=== PATIENT | female | born 1965 | race Hispanic/Latino ===

== ENCOUNTER → 2018-05-10 | Outpatient (CLI) | payer MEDICAID ==
[~2018-05-10] MED LIST: ESOM40CA PO; PARO40TA PO
== END | disposition home or self-care (01) ==
LOC: RAH 14:03
PROVIDERS: ATTEND Obstetrics & Gynecology
DX: Z12.31 Encounter for screening mammogram for malignant neoplasm of breast (principal)
CPT/HCPCS: 77067

== ENCOUNTER 2018-07-21 17:32 | Emergency (ER) | payer MEDICAID | END 2018-07-21 19:10 | disposition home or self-care (01) | LOC: EDH 17:32 | DX: S20.212A Contusion of left front wall of thorax, initial encounter (principal); S80.11XA Contusion of right lower leg, initial encounter; F41.9 Anxiety disorder, unspecified; M19.90 Unspecified osteoarthritis, unspecified site; F32.9 Major depressive disorder, single episode, unspecified; Z90.49 Acquired absence of other specified parts of digestive tract; Z98.890 Other specified postprocedural states; V49.59XA Passenger injured in collision with other motor vehicles in traffic accident, initial encounter; Y93.89 Activity, other specified; Y92.89 Other specified places as the place of occurrence of the external cause; Y99.8 Other external cause status | CPT/HCPCS: 71045 ==

== ENCOUNTER 2019-04-04 02:50 | Emergency (ER) | payer MEDICAID ==
[2019-04-04] MEDS ORDERED: HYOSCYAMINE SULFATE 0.125 MG TAB.SUBL SL ONE (04:04)
[2019-04-04] MEDS ORDERED: DiphenhydrAMINE HCL 50 MG/ML VIAL ONE (04:04)
[2019-04-04] MEDS ORDERED: ONDANSETRON HCL 4 MG/2 ML VIAL ONE (04:04)
[2019-04-04] MEDS ORDERED: FAMOTIDINE/PF 20 MG/2 ML VIAL IV ONE (04:04)
[2019-04-04 04:30] LABS: CREATININE 0.9 mg/dL (0.5-1.5)
[2019-04-04 04:34] LABS: ALBUMIN 3.5 g/dL (3.5-5.0); BILIRUBIN,DIRECT 0.1 mg/dL (0.0-0.3); BILIRUBIN,TOTAL 0.5 mg/dL (0.2-1.0); TOTAL PROTEIN, SERUM 7.7 g/dL (6.0-8.3)
[2019-04-04 04:50] LABS: BASOPHILS % (AUTO) 1.3 % (0.0-5.0); EOSINOPHILS % (AUTO) 4.7 % (0.0-8.0); HEMATOCRIT 39.9 % (36-48); LYMPHOCYTES % (AUTO) 26.5 % (21.0-51.0); MEAN CORPUSCULAR HEMOGLOBIN 29.6 pg (27.0-33.0); MEAN CORPUSCULAR VOLUME 87.2 fL (79-99); MONOCYTES % (AUTO) 5.8 % (3.0-13.0); NEUTROPHILS % (AUTO) 61.7 % (40.0-77.0); PLATELET COUNT (AUTO) 282 K/uL (130-400); RED BLOOD CELL COUNT(AUTO) 4.58 MIL/uL (4.00-5.50); RED CELL DISTRIBUTION WIDTH 13.2 % (11.0-15.5); WHITE BLOOD COUNT (AUTO) 10.7 K/uL (4.8-10.8)
== END 2019-04-04 06:57 | disposition home or self-care (01) ==
LOC: EDH 02:50
DX: F41.9 Anxiety disorder, unspecified (principal); G47.00 Insomnia, unspecified; R10.13 Epigastric pain; F32.9 Major depressive disorder, single episode, unspecified; Z90.710 Acquired absence of both cervix and uterus; Z90.49 Acquired absence of other specified parts of digestive tract
CPT/HCPCS: 36415; 80048; 80076; 82550; 83690; 84484; 85025; 93005; 96374; 96375; 99285; J1200; J2405; J3490

== ENCOUNTER → 2019-05-11 | Outpatient (CLI) | payer MEDICAID | END | disposition home or self-care (01) | LOC: RAH 14:42 | PROVIDERS: ATTEND Family Medicine | DX: Z12.31 Encounter for screening mammogram for malignant neoplasm of breast (principal) | CPT/HCPCS: 77067 ==

== ENCOUNTER 2019-07-30 09:02 | Emergency (ER) | payer MEDICAID ==
[2019-07-30] MEDS ORDERED: IBUPROFEN 200 MG TAB ONE (09:42)
== END 2019-07-30 09:56 | disposition home or self-care (01) ==
LOC: EDH 09:02
DX: S93.401A Sprain of unspecified ligament of right ankle, initial encounter (principal); F41.9 Anxiety disorder, unspecified; M19.90 Unspecified osteoarthritis, unspecified site; F32.9 Major depressive disorder, single episode, unspecified; Z98.890 Other specified postprocedural states; Z90.710 Acquired absence of both cervix and uterus; Z90.49 Acquired absence of other specified parts of digestive tract; X58.XXXA Exposure to other specified factors, initial encounter; Y93.89 Activity, other specified; Y92.098 Other place in other non-institutional residence as the place of occurrence of the external cause; Y99.8 Other external cause status
CPT/HCPCS: 73610

== ENCOUNTER 2019-12-05 14:10 | Emergency (ER) | payer MEDICAID ==
[2019-12-05 15:14] LABS: APPEARANCE,URINE Clear (CLEAR); BILIRUBIN,URINE Negative (NEGATIVE); COLOR,URINE Yellow (YELLOW); GLUCOSE, URINE (UA) Negative (NEGATIVE); KETONES,URINE Negative (NEGATIVE); LEUKOCYTE ESTERASE ,URINE Negative (NEGATIVE); NITRATE,URINE Negative (NEGATIVE); OCCULT BLOOD,URINE Negative (NEGATIVE); PROTEIN,URINE Negative (NEGATIVE)
[2019-12-05 15:22] LABS: AMPHET/METH SCREEN,URINE NEGATIVE (NEGATIVE); BARBITURATE SCREEN, URINE NEGATIVE (NEGATIVE); BENZODIAZEPINES SCREEN,URINE NEGATIVE (NEGATIVE); CANNABINOID SCREEN,URINE NEGATIVE (NEGATIVE); COCAINE SCREEN,URINE NEGATIVE (NEGATIVE); OPIATE SCREEN,URINE NEGATIVE (NEGATIVE); PHENCYCLIDINE SCREEN,URINE NEGATIVE (NEGATIVE)
[2019-12-05 15:36] LABS: BASOPHILS % (AUTO) 1.1 % (0.0-5.0); EOSINOPHILS % (AUTO) 5.3 % (0.0-8.0); HEMATOCRIT 39.9 % (36-48); MEAN CORPUSCULAR HEMOGLOBIN 29.3 pg (27.0-33.0); MEAN CORPUSCULAR HGB CONC 32.8 g/dL (32.0-36.0); MEAN CORPUSCULAR VOLUME 89.3 fL (79-99); MONOCYTES % (AUTO) 7.8 % (3.0-13.0); NEUTROPHILS % (AUTO) 49.5 % (40.0-77.0); PLATELET COUNT (AUTO) 307 K/uL (130-400); RED BLOOD CELL COUNT(AUTO) 4.47 MIL/uL (4.00-5.50); RED CELL DISTRIBUTION WIDTH 12.7 % (11.0-15.5); WHITE BLOOD COUNT (AUTO) 9.5 K/uL (4.8-10.8)
[2019-12-05 15:41] LABS: CREATININE 0.8 mg/dL (0.5-1.5); POTASSIUM 4.1 mmol/L (3.5-5.1)
[2019-12-05 15:46] LABS: ALBUMIN 3.7 g/dL (3.5-5.0); BILIRUBIN,TOTAL 0.4 mg/dL (0.2-1.0)
[2019-12-05 16:01] LABS: INR 0.91 (0.85-1.15); PROTHROMBIN TIME 9.9 SEC (9.6-11.6)
[2019-12-05] MEDS ORDERED: HYOSCYAMINE SULFATE 0.125 MG TAB.SUBL SL ONE (16:40)
== END 2019-12-05 17:02 | disposition home or self-care (01) ==
LOC: EDH 14:10
DX: K76.0 Fatty (change of) liver, not elsewhere classified (principal); R10.11 Right upper quadrant pain; I10 Essential (primary) hypertension; F41.9 Anxiety disorder, unspecified; M19.90 Unspecified osteoarthritis, unspecified site; F32.9 Major depressive disorder, single episode, unspecified; Z90.49 Acquired absence of other specified parts of digestive tract; Z98.890 Other specified postprocedural states; Z90.710 Acquired absence of both cervix and uterus
CPT/HCPCS: 36415; 71045; 74176; 80053; 80305; 81003; 82150; 82550; 83690; 84484; 85025; 85610; 85730; 93005

== ENCOUNTER 2020-03-24 04:03 | Emergency (ER) | payer MEDICAID ==
[2020-03-24] MEDS ORDERED: SODIUM CHLORIDE 0.9% 1000ML 1,000 ML IV ONE (04:04)
[2020-03-24] MEDS ORDERED: KETOROLAC TROMETHAMINE 30MG/ML ONE (04:14)
[2020-03-24] MEDS ORDERED: ONDANSETRON HCL 4 MG/2 ML VIAL ONE (04:14)
[2020-03-24 05:18] LABS: BASOPHILS % (AUTO) 1.3 % (0.0-5.0); EOSINOPHILS % (AUTO) 5.2 % (0.0-8.0); HEMATOCRIT 40.5 % (36-48); LYMPHOCYTES % (AUTO) 30.8 % (21.0-51.0); MEAN CORPUSCULAR HEMOGLOBIN 29.6 pg (27.0-33.0); MEAN CORPUSCULAR HGB CONC 33.6 g/dL (32.0-36.0); MEAN CORPUSCULAR VOLUME 88.2 fL (79-99); MONOCYTES % (AUTO) 6.7 % (3.0-13.0); NEUTROPHILS % (AUTO) 55.6 % (40.0-77.0); PLATELET COUNT (AUTO) 322 K/uL (130-400); RED BLOOD CELL COUNT(AUTO) 4.59 MIL/uL (4.00-5.50); RED CELL DISTRIBUTION WIDTH 13.1 % (11.0-15.5); WHITE BLOOD COUNT (AUTO) 9.5 K/uL (4.8-10.8)
[2020-03-24 05:20] LABS: APPEARANCE,URINE Cloudy (CLEAR); BILIRUBIN,URINE Negative (NEGATIVE); COLOR,URINE Orange (YELLOW); GLUCOSE, URINE (UA) Negative (NEGATIVE); KETONES,URINE Negative (NEGATIVE); LEUKOCYTE ESTERASE ,URINE Small (NEGATIVE); NITRATE,URINE Negative (NEGATIVE); OCCULT BLOOD,URINE Large (NEGATIVE); PROTEIN,URINE POS 1+ mg/dL (NEGATIVE)
[2020-03-24 05:39] LABS: ALBUMIN 3.6 g/dL (3.5-5.0); BILIRUBIN,DIRECT 0.2 mg/dL (0.0-0.3); BILIRUBIN,TOTAL 0.8 mg/dL (0.2-1.0); CREATININE 0.9 mg/dL (0.5-1.5); POTASSIUM 3.7 mmol/L (3.5-5.1); TOTAL PROTEIN, SERUM 7.9 g/dL (6.0-8.3)
[2020-03-24 05:49] LABS: BACTERIA,URINE Rare /HPF (None Seen); RBC,URINE 51-100 /HPF (0-1); SQUAMOUS EPITHELIAL CELL,UR Rare /HPF (0-2)
== END 2020-03-24 06:05 | disposition home or self-care (01) ==
LOC: EDH 04:03
DX: N13.2 Hydronephrosis with renal and ureteral calculous obstruction (principal); E11.9 Type 2 diabetes mellitus without complications; F41.9 Anxiety disorder, unspecified; F32.9 Major depressive disorder, single episode, unspecified; M19.90 Unspecified osteoarthritis, unspecified site; Z90.49 Acquired absence of other specified parts of digestive tract; Z90.710 Acquired absence of both cervix and uterus; Z98.890 Other specified postprocedural states
CPT/HCPCS: 36415; 74176; 80048; 80076; 81001; 82550; 83690; 85025; 93005; 96361; 96374; 96375; 99285; J1885; J2405; J7030

== ENCOUNTER 2021-04-27 01:41 | Emergency (ER) | payer MEDICAID ==
[~2021-04-27] VITALS: Ht 160 cm; Wt 102.1 kg
[2021-04-27 02:02] LABS: APPEARANCE,URINE Clear (CLEAR); BILIRUBIN,URINE Negative (NEGATIVE); GLUCOSE, URINE (UA) Negative (NEGATIVE); KETONES,URINE Negative (NEGATIVE); LEUKOCYTE ESTERASE ,URINE Trace (NEGATIVE); NITRATE,URINE Negative (NEGATIVE); OCCULT BLOOD,URINE Large (NEGATIVE); PROTEIN,URINE Trace mg/dL (NEGATIVE)
[2021-04-27 02:03] LABS: COLOR,URINE YELLOW (YELLOW)
[2021-04-27 02:12] LABS: BACTERIA,URINE Rare /HPF (None Seen); CALCIUM OXALATE CRYSTALS,UR Rare /LPF (None Seen); RBC,URINE 26-50 /HPF (0-1); SQUAMOUS EPITHELIAL CELL,UR 0-2 /HPF (0-2); WBC,URINE 0-1 /HPF (0-1)
[2021-04-27] MEDS ORDERED: KETOROLAC 15MG/ML VIAL (15MG/ML) IV ONE (02:30)
[2021-04-27] MEDS ORDERED: PROCHLORPERAZINE EDISYLATE 5 MG/ML 2 ML VIAL IVP ONE (02:30)
[2021-04-27] MEDS ORDERED: 0.9%NACL 1000ML 1,000 ML IV ONE ×2 (02:30→02:55)
[2021-04-27 02:58] LABS: BASOPHILS % (AUTO) 1.2 % (0.0-5.0); EOSINOPHILS % (AUTO) 5.2 % (0.0-8.0); HEMATOCRIT 41.7 % (36-48); LYMPHOCYTES % (AUTO) 25.5 % (21.0-51.0); MEAN CORPUSCULAR HEMOGLOBIN 29.4 pg (27.0-33.0); MEAN CORPUSCULAR HGB CONC 32.6 g/dL (32.0-36.0); MEAN CORPUSCULAR VOLUME 90.1 fL (79-99); MONOCYTES % (AUTO) 7.7 % (3.0-13.0); NEUTROPHILS % (AUTO) 60.2 % (40.0-77.0); PLATELET COUNT (AUTO) 286 K/uL (130-400); RED BLOOD CELL COUNT(AUTO) 4.63 MIL/uL (4.00-5.50); WHITE BLOOD COUNT (AUTO) 11.3 K/uL (4.8-10.8)
[2021-04-27] MEDS ORDERED: ONDANSETRON 4MG INJ ONE (02:59)
[2021-04-27 03:08] LABS: CREATININE 0.9 mg/dL (0.5-1.5)
[2021-04-27 03:13] LABS: ALBUMIN 3.7 g/dL (3.5-5.0); BILIRUBIN,TOTAL 0.6 mg/dL (0.2-1.0); TOTAL PROTEIN, SERUM 8.1 g/dL (6.0-8.3)
[2021-04-27] MEDS ORDERED: ONDANSETRON 4MG INJ IVP ONE (03:30)
[2021-04-27] MEDS ORDERED: CEFTRIAXONE 1G VIAL IVP ONE (06:30)
[2021-04-27 07:16] VITALS: BP 126/73
[2021-04-27] MEDS ORDERED: KETO10 PO (08:17)
[2021-04-27] MEDS ORDERED: CEPH250 PO (08:18)
[2021-04-27] MEDS ORDERED: TAMS-1 PO (08:18)
== END 2021-04-27 08:36 | disposition home or self-care (01) ==
LOC: EDH 01:41
DX: N20.0 Calculus of kidney (principal); K57.30 Diverticulosis of large intestine without perforation or abscess without bleeding; K76.0 Fatty (change of) liver, not elsewhere classified; K42.9 Umbilical hernia without obstruction or gangrene; F41.9 Anxiety disorder, unspecified; F32.9 Major depressive disorder, single episode, unspecified; E11.9 Type 2 diabetes mellitus without complications; M19.90 Unspecified osteoarthritis, unspecified site; Z79.899 Other long term (current) drug therapy; Z98.890 Other specified postprocedural states
CPT/HCPCS: 36415; 74176; 80053; 81001; 85025; 96361; 96374; 96375; 99284; J0696; J1885; J2405; J7030

== ENCOUNTER 2021-05-17 22:33 | Observation (INO) | payer MEDICAID ==
[~2021-05-17] VITALS: Ht 160 cm; Wt 117.9 kg
[~2021-05-17 22:33] MED LIST changes: +CEPH250 PO; +KETO10 PO; +TAMS-1 PO
[2021-05-17 23:03] LABS: APPEARANCE,URINE Clear (CLEAR); BILIRUBIN,URINE Negative (NEGATIVE); COLOR,URINE Yellow (YELLOW); GLUCOSE, URINE (UA) Negative (NEGATIVE); KETONES,URINE Negative (NEGATIVE); LEUKOCYTE ESTERASE ,URINE Small (NEGATIVE); NITRATE,URINE Negative (NEGATIVE); OCCULT BLOOD,URINE Large (NEGATIVE); PROTEIN,URINE Negative (NEGATIVE); UROBILINOGEN,URINE 0.2 mg/dL (0.2-1.0)
[2021-05-17 23:11] LABS: BACTERIA,URINE None Seen /HPF (None Seen); SQUAMOUS EPITHELIAL CELL,UR Rare /HPF (0-2)
[2021-05-17 23:45] LABS: BASOPHILS % (AUTO) 0.9 % (0.0-5.0); EOSINOPHILS % (AUTO) 2.1 % (0.0-8.0); HEMATOCRIT 38.7 % (36-48); LYMPHOCYTES % (AUTO) 12.4 % (21.0-51.0); MEAN CORPUSCULAR HEMOGLOBIN 29.2 pg (27.0-33.0); MEAN CORPUSCULAR HGB CONC 33.3 g/dL (32.0-36.0); MEAN CORPUSCULAR VOLUME 87.6 fL (79-99); MONOCYTES % (AUTO) 6.1 % (3.0-13.0); NEUTROPHILS % (AUTO) 78.1 % (40.0-77.0); PLATELET COUNT (AUTO) 296 K/uL (130-400); RED BLOOD CELL COUNT(AUTO) 4.42 MIL/uL (4.00-5.50); RED CELL DISTRIBUTION WIDTH 12.5 % (11.0-15.5); WHITE BLOOD COUNT (AUTO) 17.6 K/uL (4.8-10.8)
[2021-05-17 23:54] LABS: CREATININE 1.1 mg/dL (0.5-1.5); POTASSIUM 3.8 mmol/L (3.5-5.1)
[2021-05-17 23:59] LABS: ALBUMIN 3.7 g/dL (3.5-5.0); BILIRUBIN,TOTAL 0.6 mg/dL (0.2-1.0); TOTAL PROTEIN, SERUM 7.8 g/dL (6.0-8.3)
[2021-05-18] VITALS (23 sets, daily range): BP systolic 114–157; BP diastolic 54–78
[2021-05-18] MEDS ORDERED: TAMSULOSIN HCL 0.4 MG CAP.ER.24H PO STA (00:22)
[2021-05-18] MEDS ORDERED: 0.9%NACL 1000ML 1,000 ML IV ONE (00:30)
[2021-05-18] MEDS ORDERED: ONDANSETRON 4MG INJ IVP ONE (00:30)
[2021-05-18] MEDS ORDERED: MORPHINE 5 MG/ML VIAL (5MG OR GREATER DOSE) IM ONE (00:30)
[2021-05-18] MEDS ORDERED: CEFTRIAXONE 1G VIAL IVP ONE (02:00)
[2021-05-18] MEDS ORDERED: DEXTROSE 50%-WATER 50 ML DISP.SYRIN IV PRN (03:00)
[2021-05-18] MEDS ORDERED: NITROGLYCERIN 0.4 MG SL TAB SL PRN (03:00)
[2021-05-18] MEDS ORDERED: ONDANSETRON 4MG INJ IV PRN (03:00)
[2021-05-18] MEDS ORDERED: GLUCAGON 1MG KIT 1 MG ML IM PRN (03:00)
[2021-05-18] MEDS ORDERED: ACETAMINOPHEN 325 MG TAB PO PRN ×2 (03:00)
[2021-05-18 03:20] LABS: HEMOGLOBIN A1C 6.9 % (4.0-6.0)
[2021-05-18] MEDS ORDERED: MORPHINE 2 MG SYG IVP PRN (03:30)
[2021-05-18] MEDS: 1/2 NS 1000ML 1,000 ML IV SCH ×3 (03:48→23:07)
[2021-05-18] MEDS: ZOSYN 3.375GM +NS 50ML IV SCH ×3 (03:48→20:36)
[2021-05-18] MEDS ORDERED: CEFTRIAXONE 1G VIAL ONE (03:49)
[2021-05-18] MEDS ORDERED: LACTULOSE 20 GM/30 ML UDCUP PO PRN (04:00)
[2021-05-18 04:16] LABS: INR 0.99 (0.85-1.15); MAGNESIUM 2.1 mg/dL (1.80-2.40); PROTHROMBIN TIME 10.8 SEC (9.6-11.6)
[2021-05-18] MEDS ORDERED: PARO40TA72 PO (06:08)
[2021-05-18] MEDS ORDERED: METF500S7 PO (06:09)
[2021-05-18] MEDS ORDERED: METF-444 PO (06:09)
[2021-05-18] MEDS: INSULIN HUMULIN R 100 UNIT/ML 3ML SQ SCH ×4 (06:10→20:41)
[2021-05-18] MEDS ORDERED: TRAM50TA4 PO (06:10)
[2021-05-18] MEDS: FAMOTIDINE 20MG TAB PO SCH ×2 (09:32→20:36)
[2021-05-18] MEDS ORDERED: IOHEXOL-350 50ML VIAL IV ONE (17:48)
[2021-05-18] MEDS ORDERED: ONDANSETRON 4MG INJ ONE (18:00)
[2021-05-18] MEDS ORDERED: METOCLOPRAMIDE 10 MG/2 ML VIAL ONE (18:00)
[2021-05-18] MEDS ORDERED: SUCCINYLCHOLINE 200MG/10ML SYR ONE (18:00)
[2021-05-18] MEDS ORDERED: LIDOCAINE PF 100MG/5ML (2%) SYRINGE 5ML ONE (18:00)
[2021-05-18] MEDS ORDERED: PROPOFOL 10 MG/ML 20ML VIAL IV ONE (18:01)
[2021-05-18] MEDS ORDERED: ROCURONIUM 10MG/1ML SYR 10 MG/ML ML ONE (18:01)
[2021-05-18] MEDS ORDERED: FENTANYL CITRATE PF 50 MCG/1 ML 2ML VIAL ONE (18:01)
[2021-05-18] MEDS ORDERED: MIDAZOLAM HCL 1 MG/ML 2ML VIAL ONE (18:03)
[2021-05-18] MEDS ORDERED: NEOSTIGMINE 5MG/5ML SYR IV ONE (19:05)
[2021-05-18] MEDS ORDERED: GLYCOPYRROLATE 1 MG/5 ML SYRINGE ONE (19:05)
[2021-05-18] MEDS ORDERED: TRAMADOL HCL 50 MG TABLET PO PRN (19:30)
[2021-05-18] MEDS ORDERED: TAMSULOSIN HCL 0.4 MG CAP.ER.24H PO SCH (21:00)
[2021-05-19] VITALS: BP_SYST 132; BP_SYST 141; BP_DIAS 68; BP_DIAS 79
[2021-05-19 01:00] VITALS: BP 146/72
[2021-05-19 03:58] LABS: BASOPHILS % (AUTO) 0.9 % (0.0-5.0); EOSINOPHILS % (AUTO) 3.5 % (0.0-8.0); HEMATOCRIT 35.7 % (36-48); LYMPHOCYTES % (AUTO) 25.7 % (21.0-51.0); MEAN CORPUSCULAR HEMOGLOBIN 29.2 pg (27.0-33.0); MEAN CORPUSCULAR HGB CONC 32.2 g/dL (32.0-36.0); MEAN CORPUSCULAR VOLUME 90.6 fL (79-99); MONOCYTES % (AUTO) 7.5 % (3.0-13.0); NEUTROPHILS % (AUTO) 62.2 % (40.0-77.0); PLATELET COUNT (AUTO) 244 K/uL (130-400); RED BLOOD CELL COUNT(AUTO) 3.94 MIL/uL (4.00-5.50); RED CELL DISTRIBUTION WIDTH 12.8 % (11.0-15.5); WHITE BLOOD COUNT (AUTO) 9.8 K/uL (4.8-10.8)
[2021-05-19 04:00] VITALS: BP 138/70
[2021-05-19] MEDS: ZOSYN 3.375GM +NS 50ML IV SCH ×2 (04:08→11:40)
[2021-05-19 04:46] LABS: CREATININE 0.9 mg/dL (0.5-1.5); MAGNESIUM 2.1 mg/dL (1.80-2.40); POTASSIUM 4.1 mmol/L (3.5-5.1); TOTAL PROTEIN, SERUM 6.7 g/dL (6.0-8.3)
[2021-05-19] MEDS: INSULIN HUMULIN R 100 UNIT/ML 3ML SQ SCH ×2 (06:33→11:30)
[2021-05-19 08:00] VITALS: BP 151/74
[2021-05-19] MEDS: 1/2 NS 1000ML 1,000 ML IV SCH (09:03)
[2021-05-19] MEDS: FAMOTIDINE 20MG TAB PO SCH (09:03)
[2021-05-19 11:27] VITALS: BP 134/69
[2021-05-19] MEDS ORDERED: LEVO750T46 PO (14:28)
[2021-05-19] MEDS ORDERED: TAMS-1 PO (14:28)
[2021-05-19 15:30] VITALS: BP 152/70
== END 2021-05-19 16:30 | disposition home or self-care (01) ==
LOC: EDH 22:33 → EDHIP 22:34 → INTOOBSV 22:34 → 3DH 05-18 05:08
PROVIDERS: ADMIT Hospitalist; ATTEND Hospitalist
DX: N10 Acute pyelonephritis (principal); Z20.822 Contact with and (suspected) exposure to COVID-19; N20.1 Calculus of ureter; N13.30 Unspecified hydronephrosis; E66.01 Morbid (severe) obesity due to excess calories; E11.9 Type 2 diabetes mellitus without complications; E78.5 Hyperlipidemia, unspecified; K57.90 Diverticulosis of intestine, part unspecified, without perforation or abscess without bleeding; M47.815 Spondylosis without myelopathy or radiculopathy, thoracolumbar region; Z79.84 Long term (current) use of oral hypoglycemic drugs; Z90.710 Acquired absence of both cervix and uterus; Z90.49 Acquired absence of other specified parts of digestive tract; Z79.899 Other long term (current) drug therapy; Z98.890 Other specified postprocedural states; Z87.442 Personal history of urinary calculi; Z68.42 Body mass index [BMI] 45.0-49.9, adult
CPT/HCPCS: 36415 ×3; 52332; 74176; 74420; 80053 ×2; 81001; 82948 ×7; 83036; 83605 ×2; 83735 ×2; 84145 ×2; 85025 ×2; 85610; 85730; 87040 ×2; 87088; 87635; 93005; 96365; 96366 ×4; 96372; 96375; 99285; A4358; A4930; C1758; C1769; C2617; G0378; J0330; J0696; J2250; J2270; J2405 ×2; J2543 ×5; J2710; J2765; J3010; J3490 ×4; J7030 ×2; J7120; J2001; J2704; Q9967

== ENCOUNTER 2021-06-10 17:06 | Inpatient (IN) | payer MEDICAID ==
[~2021-06-10] VITALS: Ht 160 cm; Wt 116.6 kg
[~2021-06-10 17:06] MED LIST changes: -CEPH250 PO; -ESOM40CA PO; -KETO10 PO; +LEVO750T46 PO; +METF-444 PO; -PARO40TA PO; +PARO40TA72 PO; +TRAM50TA4 PO
[2021-06-10 17:57] LABS: BASOPHILS % (AUTO) 1.4 % (0.0-5.0); EOSINOPHILS % (AUTO) 5.9 % (0.0-8.0); LYMPHOCYTES % (AUTO) 28.2 % (21.0-51.0); MEAN CORPUSCULAR HEMOGLOBIN 29.1 pg (27.0-33.0); MEAN CORPUSCULAR HGB CONC 32.2 g/dL (32.0-36.0); MEAN CORPUSCULAR VOLUME 90.5 fL (79-99); MONOCYTES % (AUTO) 6.8 % (3.0-13.0); NEUTROPHILS % (AUTO) 57.5 % (40.0-77.0); PLATELET COUNT (AUTO) 395 K/uL (130-400); RED BLOOD CELL COUNT(AUTO) 4.09 MIL/uL (4.00-5.50); RED CELL DISTRIBUTION WIDTH 12.6 % (11.0-15.5); WHITE BLOOD COUNT (AUTO) 11.3 K/uL (4.8-10.8)
[2021-06-10 18:17] LABS: CREATININE 1.2 mg/dL (0.5-1.5); POTASSIUM 4.1 mmol/L (3.5-5.1)
[2021-06-10 18:23] LABS: ALBUMIN 3.8 g/dL (3.5-5.0); BILIRUBIN,TOTAL 0.5 mg/dL (0.2-1.0)
[2021-06-10 18:26] LABS: APPEARANCE,URINE CLOUDY (CLEAR); BILIRUBIN,URINE SMALL (NEGATIVE); COLOR,URINE RED (YELLOW); GLUCOSE, URINE (UA) NEGATIVE (NEGATIVE); KETONES,URINE 5 mg/dL (NEGATIVE); LEUKOCYTE ESTERASE ,URINE MODERATE (NEGATIVE); NITRATE,URINE POSITIVE (NEGATIVE); OCCULT BLOOD,URINE LARGE (NEGATIVE); PH,URINE 6.5 (5.0-8.0); PROTEIN,URINE >=300 mg/dL (NEGATIVE)
[2021-06-10] MEDS ORDERED: ONDANSETRON 4MG INJ ONE (18:28)
[2021-06-10] MEDS ORDERED: PHENAZOPYRIDINE HCL 200 MG TABLET ONE (18:28)
[2021-06-10] MEDS ORDERED: MORPHINE 4 MG SYG ONE (18:29)
[2021-06-10] MEDS ORDERED: 0.9%NACL 1000ML 1,000 ML IV SCH (18:30)
[2021-06-10] MEDS ORDERED: ONDANSETRON 4MG INJ IVP SCH (18:30)
[2021-06-10] MEDS ORDERED: ZOSYN 3.375GM +NS 50ML IV SCH (18:30)
[2021-06-10] MEDS ORDERED: PHENAZOPYRIDINE HCL 200 MG TABLET PO SCH (18:30)
[2021-06-10] MEDS ORDERED: MORPHINE 4 MG SYG IVP SCH (18:30)
[2021-06-10] MEDS ORDERED: 0.9%NACL 1000ML 1,000 ML IV ONE (18:31)
[2021-06-10] MEDS ORDERED: 0.9%NACL 50ML 50 ML IV ONE (18:56)
[2021-06-10 19:30] LABS: BACTERIA,URINE Rare /HPF (None Seen); RBC,URINE TNTC /HPF (0-1); SQUAMOUS EPITHELIAL CELL,UR None Seen /HPF (0-2)
[2021-06-10] MEDS ORDERED: HYDROCODONE/ACETAMINOPHEN 5/325 MG TAB PO PRN (22:00)
[2021-06-10] MEDS ORDERED: ONDANSETRON 4MG INJ IV PRN (22:00)
[2021-06-10] MEDS ORDERED: HYDROMORPHONE 1 MG INJ IV PRN (22:00)
[2021-06-10] MEDS ORDERED: MAG/ALUM/SIMETH 30 ML UDCUP PO PRN (22:00)
[2021-06-10] MEDS ORDERED: LACTULOSE 20 GM/30 ML UDCUP PO PRN (22:00)
[2021-06-10] MEDS ORDERED: ACETAMINOPHEN 325 MG TAB PO PRN ×2 (22:00)
[2021-06-10] MEDS: 0.9%NACL 1000ML 1,000 ML IV SCH (22:30)
[2021-06-10] MEDS: ZOSYN 3.375GM +NS 50ML IV SCH (22:30)
[2021-06-11] VITALS (15 sets, daily range): BP systolic 121–168; BP diastolic 60–82
[2021-06-11] MEDS ORDERED: TRAM50TA4 PO (00:41)
[2021-06-11] MEDS ORDERED: METF-526 PO (00:41)
[2021-06-11] MEDS ORDERED: IBUP-2077 PO (00:41)
[2021-06-11] MEDS ORDERED: PARO40TA72 PO (00:41)
[2021-06-11] MEDS: ZOSYN 3.375GM +NS 50ML IV SCH ×4 (05:27→22:00)
[2021-06-11 06:27] LABS: HEMATOCRIT 33.7 % (36-48); MEAN CORPUSCULAR HEMOGLOBIN 28.5 pg (27.0-33.0); MEAN CORPUSCULAR HGB CONC 31.8 g/dL (32.0-36.0); MEAN CORPUSCULAR VOLUME 89.9 fL (79-99); RED BLOOD CELL COUNT(AUTO) 3.75 MIL/uL (4.00-5.50); RED CELL DISTRIBUTION WIDTH 12.5 % (11.0-15.5); WHITE BLOOD COUNT (AUTO) 8.3 K/uL (4.8-10.8)
[2021-06-11 06:56] LABS: POTASSIUM 4.7 mmol/L (3.5-5.1)
[2021-06-11] MEDS: INSULIN HUMULIN R 100 UNIT/ML 3ML SQ SCH ×4 (07:30→21:00)
[2021-06-11] MEDS ORDERED: INSULIN HUMULIN R 100 UNIT/ML 3ML SQ SCH (07:30)
[2021-06-11] MEDS: 0.9%NACL 1000ML 1,000 ML IV SCH ×2 (08:21→18:00)
[2021-06-11] MEDS: TAMSULOSIN HCL 0.4 MG CAP.ER.24H PO SCH (09:00)
[2021-06-11] MEDS: FAMOTIDINE 20MG VIAL IV SCH ×2 (09:00→21:00)
[2021-06-11] MEDS ORDERED: LIDOCAINE PF 100MG/5ML (2%) SYRINGE 5ML ONE (19:05)
[2021-06-11] MEDS ORDERED: SUCCINYLCHOLINE 200MG/10ML SYR ONE (19:05)
[2021-06-11] MEDS ORDERED: FENTANYL CITRATE PF 50 MCG/1 ML 2ML VIAL ONE (19:05)
[2021-06-11] MEDS ORDERED: PROPOFOL 10 MG/ML 20ML VIAL IV ONE (19:05)
[2021-06-11] MEDS ORDERED: MIDAZOLAM HCL 1 MG/ML 2ML VIAL ONE (19:38)
[2021-06-11] MEDS ORDERED: FENTANYL CITRATE PF 50 MCG/1 ML 5ML AMP IV ONE (20:17)
[2021-06-11] MEDS ORDERED: ONDANSETRON 4MG INJ ONE (20:22)
[2021-06-11] MEDS ORDERED: KETOROLAC 15MG/ML VIAL (15MG/ML) IV PRN (22:30)
[2021-06-12 01:40] VITALS: BP 101/61
[2021-06-12] MEDS: 0.9%NACL 1000ML 1,000 ML IV SCH ×3 (03:18→23:26)
[2021-06-12 04:00] VITALS: BP_SYST 118; BP_SYST 97; BP_DIAS 61; BP_DIAS 64
[2021-06-12 04:48] LABS: BASOPHILS % (AUTO) 1.5 % (0.0-5.0); EOSINOPHILS % (AUTO) 5.1 % (0.0-8.0); HEMATOCRIT 32.8 % (36-48); LYMPHOCYTES % (AUTO) 32.8 % (21.0-51.0); MEAN CORPUSCULAR VOLUME 90.6 fL (79-99); MONOCYTES % (AUTO) 6.9 % (3.0-13.0); NEUTROPHILS % (AUTO) 53.4 % (40.0-77.0); PLATELET COUNT (AUTO) 331 K/uL (130-400); RED BLOOD CELL COUNT(AUTO) 3.62 MIL/uL (4.00-5.50); RED CELL DISTRIBUTION WIDTH 12.6 % (11.0-15.5); WHITE BLOOD COUNT (AUTO) 8.7 K/uL (4.8-10.8)
[2021-06-12 05:09] LABS: ALBUMIN 2.9 g/dL (3.5-5.0); BILIRUBIN,TOTAL 0.9 mg/dL (0.2-1.0); CREATININE 0.8 mg/dL (0.5-1.5); POTASSIUM 3.6 mmol/L (3.5-5.1); TOTAL PROTEIN, SERUM 6.3 g/dL (6.0-8.3)
[2021-06-12] MEDS: ZOSYN 3.375GM +NS 50ML IV SCH ×3 (06:13→20:16)
[2021-06-12] MEDS: INSULIN HUMULIN R 100 UNIT/ML 3ML SQ SCH ×4 (07:00→20:17)
[2021-06-12 08:00] VITALS: BP 134/68
[2021-06-12] MEDS: FAMOTIDINE 20MG VIAL IV SCH ×2 (09:51→20:16)
[2021-06-12] MEDS: TAMSULOSIN HCL 0.4 MG CAP.ER.24H PO SCH (09:51)
[2021-06-12] MEDS: PAROXETINE HCL 20 MG TABLET PO SCH (09:52)
[2021-06-12 11:47] VITALS: BP 171/93
[2021-06-12 16:00] VITALS: BP 138/76
[2021-06-12 20:00] VITALS: BP 131/68
[2021-06-13] VITALS: BP 127/58
[2021-06-13 04:00] VITALS: BP 147/69
[2021-06-13] MEDS: ZOSYN 3.375GM +NS 50ML IV SCH (05:33)
[2021-06-13] MEDS: INSULIN HUMULIN R 100 UNIT/ML 3ML SQ SCH ×2 (06:33→11:29)
[2021-06-13] MEDS ORDERED: NITR100C PO (07:31)
[2021-06-13] MEDS ORDERED: IBUP-2070 PO (07:33)
[2021-06-13] MEDS: FAMOTIDINE 20MG VIAL IV SCH (08:18)
[2021-06-13] MEDS: PAROXETINE HCL 20 MG TABLET PO SCH (08:18)
[2021-06-13] MEDS: TAMSULOSIN HCL 0.4 MG CAP.ER.24H PO SCH (08:18)
[2021-06-13 08:50] VITALS: BP 124/66
[2021-06-13] MEDS: 0.9%NACL 1000ML 1,000 ML IV SCH (10:00)
[2021-06-13 11:47] VITALS: BP 136/66
== END 2021-06-13 13:42 | disposition home or self-care (01) | DRG 446 ==
LOC: EDH 17:06 → EDHIP 17:07 → 3BH 06-11 21:55
PROVIDERS: ADMIT Hospitalist; ATTEND Hospitalist
PROC: 0TC68ZZ Extirpation of Matter from Right Ureter, Via Natural or Artificial Opening Endoscopic (ICD-10-PCS; principal; 2021-06-11 14:45)
PROC: 0T788DZ Dilation of Bilateral Ureters with Intraluminal Device, Via Natural or Artificial Opening Endoscopic (ICD-10-PCS; 2021-06-11 14:45)
PROC: 0TC78ZZ Extirpation of Matter from Left Ureter, Via Natural or Artificial Opening Endoscopic (ICD-10-PCS; 2021-06-11 14:45)
DX: N13.6 Pyonephrosis (principal); D62 Acute posthemorrhagic anemia; Z68.42 Body mass index [BMI] 45.0-49.9, adult; E11.9 Type 2 diabetes mellitus without complications; B96.20 Unspecified Escherichia coli [E. coli] as the cause of diseases classified elsewhere; F32.A Depression, unspecified; E66.9 Obesity, unspecified; K57.90 Diverticulosis of intestine, part unspecified, without perforation or abscess without bleeding; Z16.12 Extended spectrum beta lactamase (ESBL) resistance; Z96.0 Presence of urogenital implants; Z87.442 Personal history of urinary calculi; Z90.710 Acquired absence of both cervix and uterus; Z90.49 Acquired absence of other specified parts of digestive tract; Z83.3 Family history of diabetes mellitus; Z82.3 Family history of stroke; Z80.1 Family history of malignant neoplasm of trachea, bronchus and lung; Z80.8 Family history of malignant neoplasm of other organs or systems; Z83.6 Family history of other diseases of the respiratory system; Z82.49 Family history of ischemic heart disease and other diseases of the circulatory system
CPT/HCPCS: 36415; 74018; 74176; 80048; 80053; 81001; 81025; 82360; 82948; 83690; 85025; 85027; 87077; 87088; 87186; 93005; C1758; C1769; C1894; C2617; G0378; J0330; J2001; J2250; J2270; J2405; J2543; J2704; J3010; J3490; J7030

== ENCOUNTER 2021-06-21 10:51 | Emergency (ER) | payer MEDICAID ==
[~2021-06-21] VITALS: Ht 160 cm; Wt 122.5 kg
[~2021-06-21 10:51] MED LIST changes: +IBUP-2070 PO; +IBUP-2077 PO; -LEVO750T46 PO; +METF-526 PO; +NITR100C PO
[2021-06-21] MEDS ORDERED: KETOROLAC 30MG VIAL (30MG/ML) IVP ONE (12:30)
[2021-06-21] MEDS ORDERED: 0.9%NACL 1000ML 1,000 ML IV ONE (12:30)
[2021-06-21 12:52] LABS: APPEARANCE,URINE TURBID (CLEAR); BILIRUBIN,URINE NEGATIVE (NEGATIVE); COLOR,URINE YELLOW (YELLOW); GLUCOSE, URINE (UA) NEGATIVE (NEGATIVE); KETONES,URINE NEGATIVE (NEGATIVE); LEUKOCYTE ESTERASE ,URINE LARGE (NEGATIVE); NITRATE,URINE NEGATIVE (NEGATIVE); OCCULT BLOOD,URINE MODERATE (NEGATIVE); PH,URINE 6.5 (5.0-8.0); PROTEIN,URINE 30 mg/dL (NEGATIVE); UROBILINOGEN,URINE 0.2 mg/dL (0.2-1.0)
[2021-06-21 13:00] LABS: BACTERIA,URINE Many /HPF (None Seen); RBC,URINE 51-100 /HPF (0-1); WBC,URINE >100 /HPF (0-1)
[2021-06-21] MEDS ORDERED: CEFTRIAXONE 1G VIAL IVP ONE (13:30)
[2021-06-21 13:33] LABS: EOSINOPHILS % (AUTO) 5.5 % (0.0-8.0); HEMATOCRIT 37.8 % (36-48); LYMPHOCYTES % (AUTO) 15.7 % (21.0-51.0); MEAN CORPUSCULAR HEMOGLOBIN 29.2 pg (27.0-33.0); MEAN CORPUSCULAR HGB CONC 32.8 g/dL (32.0-36.0); MEAN CORPUSCULAR VOLUME 89.2 fL (79-99); MONOCYTES % (AUTO) 8.7 % (3.0-13.0); NEUTROPHILS % (AUTO) 68.8 % (40.0-77.0); PLATELET COUNT (AUTO) 295 K/uL (130-400); RED BLOOD CELL COUNT(AUTO) 4.24 MIL/uL (4.00-5.50); RED CELL DISTRIBUTION WIDTH 12.7 % (11.0-15.5); WHITE BLOOD COUNT (AUTO) 13.7 K/uL (4.8-10.8)
[2021-06-21 13:44] LABS: ALBUMIN 3.6 g/dL (3.5-5.0); BILIRUBIN,TOTAL 0.7 mg/dL (0.2-1.0); CREATININE 0.9 mg/dL (0.5-1.5); POTASSIUM 4.2 mmol/L (3.5-5.1); TOTAL PROTEIN, SERUM 7.6 g/dL (6.0-8.3)
[2021-06-21] MEDS ORDERED: ACET1TAB25 PO (14:32)
[2021-06-21] MEDS ORDERED: CEFD300C3 PO (14:32)
[2021-06-21] MEDS ORDERED: CEFTRIAXONE 1G VIAL ONE (14:34)
[2021-06-21 14:56] VITALS: BP 134/70
== END 2021-06-21 14:58 | disposition home or self-care (01) ==
LOC: EDH 10:51
DX: N13.2 Hydronephrosis with renal and ureteral calculous obstruction (principal); N39.0 Urinary tract infection, site not specified; E11.9 Type 2 diabetes mellitus without complications; F32.A Depression, unspecified; Z79.1 Long term (current) use of non-steroidal anti-inflammatories (NSAID); Z79.84 Long term (current) use of oral hypoglycemic drugs; Z79.899 Other long term (current) drug therapy; Z90.49 Acquired absence of other specified parts of digestive tract
CPT/HCPCS: 36415; 74176; 80053; 81001; 85025; 87077 ×3; 87088; 87186 ×3; 96361; 96374; 96375; 99284; J0696; J1885; J7030

== ENCOUNTER 2022-05-07 15:04 | Emergency (ER) | payer MEDICAID ==
[~2022-05-07] VITALS: Ht 160 cm; Wt 122.5 kg
[~2022-05-07 15:04] MED LIST changes: +ACET-2079 PO; +CEFD300C3 PO
[2022-05-07] MEDS ORDERED: KETOROLAC 30MG VIAL (30MG/ML) IVP ONE (15:30)
[2022-05-07] MEDS ORDERED: HYDROCODONE/ACETAMINOPHEN 10/325 MG TAB PO ONE (15:30)
[2022-05-07] MEDS ORDERED: CYCL10TA16 PO (17:54)
[2022-05-07] MEDS ORDERED: NAPR-1180 PO (17:54)
[2022-05-07] MEDS ORDERED: BACITRACIN 1 EACH PACKET TP ONE (18:38)
[2022-05-07 18:50] VITALS: BP 138/87
== END 2022-05-07 18:48 | disposition home or self-care (01) ==
LOC: EDH 15:04
DX: S16.1XXA Strain of muscle, fascia and tendon at neck level, initial encounter (principal); S83.92XA Sprain of unspecified site of left knee, initial encounter; S09.90XA Unspecified injury of head, initial encounter; F32.A Depression, unspecified; M19.90 Unspecified osteoarthritis, unspecified site; E66.01 Morbid (severe) obesity due to excess calories; E11.9 Type 2 diabetes mellitus without complications; E78.00 Pure hypercholesterolemia, unspecified; Z90.710 Acquired absence of both cervix and uterus; Z90.49 Acquired absence of other specified parts of digestive tract; Z68.42 Body mass index [BMI] 45.0-49.9, adult; W18.39XA Other fall on same level, initial encounter; Y93.89 Activity, other specified; Y92.89 Other specified places as the place of occurrence of the external cause; Y99.8 Other external cause status
CPT/HCPCS: 99284; 70450; 96374; 73551; 73562; 72125; J1885

== ENCOUNTER 2022-06-15 14:38 | Emergency (ER) | payer MEDICAID ==
[~2022-06-15] VITALS: Ht 160 cm; Wt 122.5 kg
[~2022-06-15 14:38] MED LIST changes: +CYCL10TA16 PO; +NAPR-1180 PO
[2022-06-15 14:46] VITALS: BP 165/80
[2022-06-15] MEDS ORDERED: KETOROLAC 15MG/ML VIAL (15MG/ML) IV ONE (15:30)
[2022-06-15] MEDS ORDERED: 0.9% NACL 500ML IV.SOLN 500 ML IV ONE (15:30)
[2022-06-15 15:35] LABS: BASOPHILS % (AUTO) 1.3 % (0.0-5.0); EOSINOPHILS % (AUTO) 6.3 % (0.0-8.0); HEMATOCRIT 38.8 % (36-48); LYMPHOCYTES % (AUTO) 29.6 % (21.0-51.0); MEAN CORPUSCULAR HEMOGLOBIN 29.1 pg (27.0-33.0); MEAN CORPUSCULAR HGB CONC 33.2 g/dL (32.0-36.0); MEAN CORPUSCULAR VOLUME 87.4 fL (79-99); MONOCYTES % (AUTO) 7.6 % (3.0-13.0); NEUTROPHILS % (AUTO) 54.9 % (40.0-77.0); PLATELET COUNT (AUTO) 305 K/uL (130-400); RED BLOOD CELL COUNT(AUTO) 4.44 MIL/uL (4.00-5.50); RED CELL DISTRIBUTION WIDTH 12.6 % (11.0-15.5); WHITE BLOOD COUNT (AUTO) 9.9 K/uL (4.8-10.8)
[2022-06-15 15:42] LABS: APPEARANCE,URINE CLOUDY (CLEAR); BILIRUBIN,URINE NEGATIVE (NEGATIVE); COLOR,URINE YELLOW (YELLOW); GLUCOSE, URINE (UA) NEGATIVE (NEGATIVE); KETONES,URINE NEGATIVE (NEGATIVE); LEUKOCYTE ESTERASE ,URINE 250 Leu/uL (NEGATIVE); NITRATE,URINE NEGATIVE (NEGATIVE); OCCULT BLOOD,URINE NEGATIVE (NEGATIVE); PH,URINE 5.5 (5.0-8.0); PROTEIN,URINE 20 mg/dL (NEGATIVE)
[2022-06-15 15:43] LABS: POTASSIUM 4.3 mmol/L (3.5-5.1)
[2022-06-15 15:48] LABS: ALBUMIN 3.5 g/dL (3.5-5.0); TOTAL PROTEIN, SERUM 7.9 g/dL (6.0-8.3)
[2022-06-15 15:49] LABS: BACTERIA,URINE RARE /HPF (None Seen); CALCIUM OXALATE CRYSTALS,UR MOD /LPF (None Seen); MUCUS,URINE RARE LPF (None Seen); SQUAMOUS EPITHELIAL CELL,UR FEW /HPF (0-2); WBC,URINE TNTC /HPF (0-1)
[2022-06-15] MEDS ORDERED: IOHEXOL 350 MG/ML 100ML INFUS..BTL IV ONE (15:50)
[2022-06-15] MEDS ORDERED: CEPH500B PO (17:06)
== END 2022-06-15 17:55 | disposition home or self-care (01) ==
LOC: EDH 14:38
DX: N39.0 Urinary tract infection, site not specified (principal); M25.562 Pain in left knee; M19.90 Unspecified osteoarthritis, unspecified site; F32.9 Major depressive disorder, single episode, unspecified; E11.9 Type 2 diabetes mellitus without complications; E78.00 Pure hypercholesterolemia, unspecified; Z90.49 Acquired absence of other specified parts of digestive tract; Z90.710 Acquired absence of both cervix and uterus; Z79.84 Long term (current) use of oral hypoglycemic drugs; Z79.899 Other long term (current) drug therapy; Z98.890 Other specified postprocedural states
CPT/HCPCS: 99285; 74177; 96374; 80053; 85025; 87088; 81001; 36415; 73562; J7040; J1885; Q9967

== ENCOUNTER → 2022-11-30 | Outpatient (CLI) | payer MEDICAID ==
[~2022-11-30] MED LIST changes: +CEPH500B PO
== END | disposition home or self-care (01) ==
LOC: SHCH 14:04
PROVIDERS: ATTEND Internal Medicine
DX: I49.3 Ventricular premature depolarization (principal); E11.9 Type 2 diabetes mellitus without complications; E78.5 Hyperlipidemia, unspecified
CPT/HCPCS: 93306

== ENCOUNTER 2023-05-24 22:13 | Emergency (ER) | payer MEDICAID ==
[~2023-05-24] VITALS: Ht 160 cm; Wt 123.8 kg
[2023-05-24] MEDS ORDERED: IPRATROPIUM/ALBUTEROL SULFATE 3 ML SOLUTION IH ONE (22:30)
[2023-05-24] MEDS ORDERED: ACETAMINOPHEN 500 MG TABLET PO ONE (22:30)
[2023-05-24 22:36] VITALS: PULSE 91; RESP 19
[2023-05-24 22:37] LABS: RAPID GROUP A STREP negative (NEGATIVE)
[2023-05-24 22:43] VITALS: PULSE 92; RESP 20
[2023-05-24 22:43] LABS: SARS-CoV-2, RNA, NAAT NEGATIVE SARS CoV-2 (NEGATIVE)
[2023-05-24 22:46] LABS: INFLUENZA TYPE B Negative For Type B (NEGATIVE)
[2023-05-24 22:48] LABS: INFLUENZA TYPE A Positive For Type A (NEGATIVE)
[2023-05-24] MEDS ORDERED: ALBU90AE2 IH (22:56)
[2023-05-24] MEDS ORDERED: IBUP-1493 PO (22:56)
[2023-05-24] MEDS ORDERED: PRED20TA3 PO (22:56)
[2023-05-25] MEDS ORDERED: PREDNISONE 20 MG TABLET PO ONE
[2023-05-25 00:10] VITALS: TEMP 98.7
[2023-05-25 00:15] VITALS: BP 142/79; PULSE 90; RESP 20; O2SAT 97
== END 2023-05-25 | disposition home or self-care (01) ==
LOC: EDH 22:13
DX: J10.1 Influenza due to other identified influenza virus with other respiratory manifestations (principal); J20.8 Acute bronchitis due to other specified organisms; B97.81 Human metapneumovirus as the cause of diseases classified elsewhere; E11.9 Type 2 diabetes mellitus without complications; E78.00 Pure hypercholesterolemia, unspecified; F32.A Depression, unspecified; M19.90 Unspecified osteoarthritis, unspecified site; Z79.84 Long term (current) use of oral hypoglycemic drugs; Z79.899 Other long term (current) drug therapy; Z90.49 Acquired absence of other specified parts of digestive tract; Z20.822 Contact with and (suspected) exposure to COVID-19
CPT/HCPCS: 99284; 71045; 87635; 87880; 87804 ×2; 94640 ×2; C9803

== ENCOUNTER → 2025-06-04 | Outpatient (CLI) | payer MEDICAID ==
[~2025-06-04] MED LIST changes: -ACET-2079 PO; -CEFD300C3 PO; -CEPH500B PO; -CYCL10TA16 PO; -IBUP-2070 PO; -IBUP-2077 PO; +LISI2.5T13 PO; -METF-444 PO; -NAPR-1180 PO; -NITR100C PO; -TAMS-1 PO; -TRAM50TA4 PO
--- NOTE | 2025-06-05 12:37 | HMCIMG ---
DIGITAL BILATERAL SCREENING MAMMOGRAM Technique: The digital mammographic examination of both breasts in craniocaudal and mediolateral oblique views along with CAD was obtained. History: This is a 60 years year-old female 8, para5 Ab3. Patient has no family history of breast cancer. Patient has no complaint Reference:Mammogram from 12/13/2021 and 08/11/2020 are available.. Breast composition: Breast composition B: There are scattered areas of fibroglandular density. Finding: The digital mammographic examination of both breasts in craniocaudal and mediolateral oblique view along with CAD demonstrates both breasts to have mostly involutional fatty changes with some residual fibroglandular stromal elements.. There is no evidence of any dendritic mass, cluster microcalcification or architectural distortion. The retromammary fat appears to be normal. IMPRESSION: Unchanged from prior mammography. NO RADIOGRAPHIC EVIDENCE OF MALIGNANT CHANGES. WE WOULD RECOMMEND ANNUAL FOLLOW UP WITH TOMOSYNTHESIS UNLESS OTHERWISE CLINICALLY INDICATED. FINAL ASSESSMENT: ACR: BI-RAD - 1. Negative Mammogram. NOTE: IF A WORK-UP OF THIS PATIENT LEADS TO A BIOPSY, PLEASE FORWARD A COPY OF THE PATHOLOGY REPORT TO OUR OFFICE REQUIRED BY [employer] APRIL 24, 1994. A NEGATIVE MAMMOGRAM SHOULD NOT PRECLUDE BIOPSY OF A CLINICALLY PALPABLE SUSPICIOUS MASS, 10% OF BREAST CANCERS ARE MAMMOGRAPHICALLY OCCULT. THIS MAMMOGRAPHY FACILITY IS FULLY ACCREDITED BY THE [employer]OD AND [employer]UG [employer] (FDA). THANK YOU FOR THIS REFERRAL.
== END | disposition home or self-care (01) ==
LOC: RAH 09:19
PROVIDERS: ATTEND Obstetrics & Gynecology
DX: Z12.31 Encounter for screening mammogram for malignant neoplasm of breast (principal); R92.323 Mammographic fibroglandular density, bilateral breasts
CPT/HCPCS: 77067

== ENCOUNTER 2025-06-30 02:26 | Emergency (ER) | payer MEDICAID ==
[~2025-06-30] VITALS: Ht 160 cm; Wt 123.8 kg
--- NOTE | 2025-06-30 02:46 | ERN ---
General Chief Complaint: Abdominal Pain Stated Complaint: BILATERAL LOWER ABD PAIN Time Seen by MD: 02:35 History of Present Illness Initial Comments 60-year-old female history of hypertension, hyperlipidemia, diabetes, congestive heart failure here for evaluation of bilateral lower abdominal pain. Patient states the symptoms started earlier today. She states left greater than right. She was concerned that she decided to come to the emergency room for evaluation. She had four bowel movements a day. No diarrhea. No vomiting. No chest pain or palpitations. Denies any dysuria. States she feels bloated Allergies: Coded Allergies: No Known Drug Allergies (Unverified Allergy, Unknown, 06/04/15) Home Meds Reported Medications Lisinopril (Lisinopril) 2.5 Mg Tablet, 1 TAB PO DAILY for 30 Days, #30 TAB 0 Refills 09/27/24 Paroxetine HCl (Paroxetine HCl) 40 Mg Tablet, 40 MG PO DAILY, TAB 06/11/21 Metformin HCl (Metformin HCl ER) 500 Mg Tab.er.24, 1000 MG PO BID 06/11/21 Past Medical History Past Medical History: Arthritis, Depression, Diabetes-Type II, High Cholesterol, Hypertension, Other Medical History Other: OBSESITY , ESBL Past Surgical History: Hysterectomy, Cholecystectomy, Other, Surgical History Other: RT KNEE, EARS Family History Family History: Negative Social History Social History: Negative, Lives with family Gastrointestinal/Abdominal: (+) abdominal pain, (+) abdominal distention Physical Exam Physical Exam Dictation GENERAL APPEARANCE NAD, activity normal for age, well developed/ well nourished, no cyanosis, pallor, or diaphoresis. Morbidly obese EYES lids/conjunctiva normal. EARS/NOSE/THROAT Mucous membranes moist, nares normal, lips/teeth normal uvula midline without oral pharyngeal erythema, exudate or swelling TMs normal bilaterally. No lymphangitis/lymphedema. HEAD/NECK normocephalic atraumatic, no facial trauma, neck is supple. RESPIRATORY respiratory effort normal, speaks in full sentences, no tripod position, no accessory muscle use. Lungs clear to auscultation without rhonchi, wheezes, rales CARDIAC Regular rate and rhythm, no edema. ABDOMINAL Soft, mildly distended, mild bilateral lower abdominal tenderness to deep palpation/ No evidence of fluid wave. No pulsatile masses on exam, rebound tenderness, Elder sign or pain over Mcburney's point. MUSCLES/EXTREMITIES No abnormal range of motion, no swelling. SKIN Warm, pink and dry. No rashes, dermatoses, petechiae or lesions. NEUROLOGICAL Speech is clear and appropriate. Normal level of consciousness. Gait and coordination are normal. 5/5 strength in all extremities. PSYCH Normal mood and affect. Judgement/competence is appropriate Results Laboratory and Microbiology Lab and Micro Result Laboratory Tests Test 06/30/25 02:55 White Blood Count 11.3 K/uL (4.8-10.8) H Red Blood Count 4.34 MIL/uL (4.00-5.50) Hemoglobin 12.8 g/dL (12.0-16.0) Hematocrit 38.6 % (36-48) Mean Corpuscular Volume 88.9 fL (79-99) Mean Corpuscular Hemoglobin 29.5 pg (27.0-33.0) Mean Corpuscular Hemoglobin Concent 33.2 g/dL (32.0-36.0) Red Cell Distribution Width 12.7 % (11.0-15.5) Platelet Count 266 K/uL (130-400) Mean Platelet Volume 9.9 fL (7.5-10.5) Immature Granulocyte % (Auto) 0.3 % (0-1) Neutrophils (%) (Auto) 53.5 % (40.0-77.0) Lymphocytes (%) (Auto) 32.5 % (21.0-51.0) Monocytes (%) (Auto) 6.8 % (3.0-13.0) Eosinophils (%) (Auto) 5.6 % (0.0-8.0) Basophils (%) (Auto) 1.3 % (0.0-5.0) Neutrophils # (Auto) 6.1 K/uL (1.8-7.7) Lymphocytes # (Auto) 3.7 K/uL (1.0-4.8) Monocytes # (Auto) 0.8 K/uL (0.1-1.0) Eosinophils # (Auto) 0.63 K/uL (0.00-0.70) Basophils # (Auto) 0.15 K/uL (0.00-0.20) Absolute Immature Granulocyte (auto 0.03 K/uL (0-1) Nucleated Red Blood Cells 0.0 % (0.0-0.19) Urine Color LIGHT-YELLOW (YELLOW) Urine Appearance CLEAR (CLEAR) Urine pH 6.0 (5.0-8.0) Urine Specific [place] 1.012 (1.001-1.031) Urine Protein NEGATIVE mg/dL (NEGATIVE) Urine Glucose (UA) NEGATIVE mg/dL (NEGATIVE) Urine Ketones NEGATIVE mg/dL (NEGATIVE) Urine Occult Blood +- (TRACE) (NEGATIVE) H Urine Nitrate NEGATIVE (NEGATIVE) Urine Bilirubin NEGATIVE mg/dL (NEGATIVE) Urine Urobilinogen 0.2 mg/dL (0.2-1.0) Urine Leukocyte Esterase 250 Lizette/uL (NEGATIVE) H Urine RBC 2-5 /HPF (0-1) H Urine WBC 26-50 /HPF (0-1) H Urine Squamous Epithelial Cells RARE /HPF (0-2) Urine Bacteria FEW /HPF (None Seen) Sodium Level 138 mmol/L (136-145) Potassium Level 3.9 mmol/L (3.5-5.1) Chloride Level 102 mmol/L (101-111) Carbon Dioxide Level 27 mmol/L (21-32) Blood Urea Nitrogen 12 mg/dL (7-18) Creatinine 0.8 mg/dL (0.5-1.0) Glomerular Filtration Rate Calc 85 mL/min (>90) Random Glucose 193 mg/dL (70-105) H Total Calcium 9.0 mg/dL (8.5-10.1) Total Bilirubin 0.5 mg/dL (0.2-1.0) Direct Bilirubin 0.1 mg/dL (0.0-0.3) Aspartate Amino Transf (AST/SGOT) 24 U/L (10-37) Alanine Aminotransferase (ALT/SGPT) 40 U/L (12-78) Alkaline Phosphatase 122 U/L (50-136) Total Protein 7.5 g/dL (6.0-8.3) Albumin 3.2 g/dL (3.5-5.0) L Lipase 48 U/L (16-77) MDM 60-year-old female here for evaluation of bilateral lower abdominal tenderness. This is more than likely signs and symptoms of bloatedness/gas. She has no acute findings on exam. We will get basic blood work treat accordingly and possibly discharge home. ED Course Orders Procedure Category Date Status Time Hepatic Function Panel LAB 06/30/25 Complete 02:35 Cbc With Differential LAB 06/30/25 Complete 02:35 Basic Metabolic Panel LAB 06/30/25 Complete 02:35 Lipase LAB 06/30/25 Complete 02:35 Urinalysis Profile LAB 06/30/25 Complete 02:35 Ketorolac PHA 06/30/25 Complete Tromethamine 15mg/Ml 03:00 Simethicone (Mylicon) PHA 06/30/25 Complete 03:00 Culture Urine ZA 06/30/25 In Process 03:15 Ceftriaxone 2gm Vial PHA 06/30/25 Transmitted (Rocephin 2gm Inj) 03:30 Current Medications Medications (Trade) Dose Ordered Sig/Melissa Route PRN Reason Start Time Stop Time Status Last Admin Dose Admin Ketorolac Tromethamine (toRADol) 15 mg ONCE ONCE IM 06/30/25 03:00 06/30/25 03:03 DC 06/30/25 03:27 Simethicone (Mylicon) 40 mg ONCE ONCE PO 06/30/25 03:00 06/30/25 03:03 DC 06/30/25 03:27 Vital Signs Date Time Temp Pulse Resp B/P (MAP) Pulse Ox O2 Delivery O2 Flow Rate FiO2 06/30/25 02:27 97.2 85 20 185/85 99 Room Air DX & DISP Disposition: Discharge Departure Impression: Primary Impression: UTI (urinary tract infection) Condition: Stable Scripts Cephalexin (Cephalexin) 500 Mg Tablet 1 TAB PO BID for 7 Days, #14 TAB 0 Refills Prov: NIEVES BOWEN MD 06/30/25 Referrals: COLT SILVER MD (PCP) NIEVES BOWEN MD Jun 30, 2025 02:46
[2025-06-30 03:11] LABS: IMMATURE GRANULOCYTE ABSOLUTE 0.03 K/uL (0-1); NUCLEATED RED BLOOD CELLS 0.0 % (0.0-0.19); PLATELET COUNT (AUTO) 266 K/uL (130-400); RED BLOOD CELL COUNT(AUTO) 4.34 MIL/uL (4.00-5.50); RED CELL DISTRIBUTION WIDTH 12.7 % (11.0-15.5); WHITE BLOOD COUNT (AUTO) 11.3 K/uL (4.8-10.8)
[2025-06-30 03:14] LABS: APPEARANCE,URINE CLEAR (CLEAR); GLUCOSE, URINE (UA) NEGATIVE (NEGATIVE); LEUKOCYTE ESTERASE ,URINE 250 Leu/uL (NEGATIVE); NITRATE,URINE NEGATIVE (NEGATIVE); OCCULT BLOOD,URINE +- (TRACE) (NEGATIVE)
[2025-06-30 03:15] LABS: ADD UA MICROSCOPIC YES
[2025-06-30 03:18] LABS: SQUAMOUS EPITHELIAL CELL,UR RARE /HPF (0-2)
[2025-06-30 03:21] LABS: CREATININE 0.8 mg/dL (0.5-1.0); GLOMERULAR FILTR. RATE CALC 85.0 mL/min (>90); GLUCOSE,RANDOM 193.0 mg/dL (70-105); SODIUM SERUM 138.0 mmol/L (136-145); UREA NITROGEN, BLOOD 12.0 mg/dL (7-18)
[2025-06-30] MEDS: SIMETHICONE 80 MG TAB.CHEW PO ONE (03:27)
[2025-06-30 03:28] VITALS: BP 165/84; PULSE 76; RESP 19; TEMP 98.6; O2SAT 98
[2025-06-30 03:28] LABS: ASPARTATE AMINOTRANSFERASE 24.0 U/L (10-37); TOTAL PROTEIN, SERUM 7.5 g/dL (6.0-8.3)
== END 2025-06-30 03:51 | disposition home or self-care (01) ==
LOC: EDH 02:26
DX: N39.0 Urinary tract infection, site not specified (principal); E11.9 Type 2 diabetes mellitus without complications; E78.00 Pure hypercholesterolemia, unspecified; F32.A Depression, unspecified; I11.0 Hypertensive heart disease with heart failure; I50.9 Heart failure, unspecified; M19.90 Unspecified osteoarthritis, unspecified site; Z79.84 Long term (current) use of oral hypoglycemic drugs; Z79.899 Other long term (current) drug therapy; Z90.49 Acquired absence of other specified parts of digestive tract; Z90.710 Acquired absence of both cervix and uterus
CPT/HCPCS: 99284; 80076; 80048; 83690; 85025; 87086 ×2; 87186; 81001; 36415; 96372 ×2; J1885; J0696